=== PATIENT | female | born 1975 | race African-American/Black ===

== ENCOUNTER 2018-02-10 04:06 | Emergency (ER) | payer OTHER ==
[~2018-02-10] VITALS: Ht 162.6 cm; Wt 74.8 kg
[2018-02-10 04:08] VITALS: BP_SYST 134
[2018-02-10] MEDS ORDERED: LORazepam 1 MG TABLET PO ONE (04:15)
[2018-02-10] MEDS ORDERED: HALOPERIDOL LACTATE 5 MG/ML VIAL IM ONE (05:00)
[2018-02-10] MEDS ORDERED: traMADol HCL HCL 50 MG TABLET (ULTRAM) PO ONE (05:45)
[2018-02-10 06:50] VITALS: BP_SYST 126
== END 2018-02-10 06:50 | disposition home or self-care (01) ==
LOC: SED 04:06
DX: F41.9 Anxiety disorder, unspecified (principal); F11.20 Opioid dependence, uncomplicated; I10 Essential (primary) hypertension
CPT/HCPCS: 96372; 99283; J1630

== ENCOUNTER 2018-02-14 05:19 | Emergency (ER) | payer OTHER ==
[~2018-02-14] VITALS: Ht 162.6 cm; Wt 74.8 kg
[2018-02-14 05:20] VITALS: BP_SYST 124
[2018-02-14] MEDS ORDERED: ALPRAZolam 0.25 MG TABLET PO ONE (06:30)
[2018-02-14] MEDS ORDERED: LORazepam 2 MG/ML VIAL (FOR ER USE) IM ONE (07:15)
== END 2018-02-14 11:55 | disposition home or self-care (01) ==
LOC: SED 05:19
DX: F41.9 Anxiety disorder, unspecified (principal); I10 Essential (primary) hypertension; G89.29 Other chronic pain; M54.9 Dorsalgia, unspecified
CPT/HCPCS: 99284; J2060

== ENCOUNTER 2019-10-14 17:03 | Emergency (ER) | payer OTHER ==
[~2019-10-14] VITALS: Ht 170.2 cm; Wt 113.4 kg
[2019-10-14 17:15] VITALS: BP_SYST 140
--- NOTE | 2019-10-14 17:15 | NUR ---
Patient to ER bed 5 to gown for evaluation. Side rails up. Report given to ADY Khan.
--- NOTE | 2019-10-14 17:30 | NUR ---
MD BOWLES AT BEDSIDE TO ASSESS
--- NOTE | 2019-10-14 18:15 | NUR ---
HERE FROM HOME FOR SI WITH PLAN TO OD ON NIQUIL LIQUID 4 BOTTLES. SKIN WARM DRY, GOOD COLOR, CLEAR MENTATION AND SPEECH. COMMUNICATES CLEARLY IN FULL COMPLETE SENTENCES, DENIES PAIN/SOB. AGITATED, CONFRONTATIONAL AND ARGUMENTATIVE. SHE IS DEMANDING ATIVAN
[2019-10-14 18:23] LABS: BASOPHILS # (AUTO) 0.1 K/uL (0.0-0.2); BASOPHILS % (AUTO) 0.9 % (0.0-2.0); EOSINOPHILS # (AUTO) 0.1 K/uL (0.0-0.4); HEMOGLOBIN 11.1 g/dL (12.0-16.0); LYMPHOCYTES # (AUTO) 2.6 K/uL (1.0-5.5); MEAN CORPUSCULAR HEMOGLOBIN 21 pg (27-31); MEAN CORPUSCULAR HGB CONC 31 % (32-36); MEAN CORPUSCULAR VOLUME 68 fL (79.0-98.0); MONOCYTES # (AUTO) 0.9 K/uL (0.0-1.0); MONOCYTES % (AUTO) 6.3 % (1.7-9.3); NEUTROPHILS # (AUTO) 10.7 K/uL (1.8-7.7); NEUTROPHILS % (AUTO) 73.8 % (40.0-70.0); PLATELET COUNT (AUTO) 349 K/uL (130-430); RED BLOOD CELL COUNT(AUTO) 5.29 MIL/uL (4.2-6.2); RED CELL DISTRIBUTION WIDTH 16.4 % (9.0-15.0); WHITE BLOOD COUNT (AUTO) 14.5 K/uL (4.8-10.8)
[2019-10-14 18:32] LABS: ANION GAP 10 (5-15); CALCIUM 8.4 mg/dL (8.4-11.0); CHLORIDE 101 mmol/L (98-107); CREATININE 1.07 mg/dL (0.55-1.30); GLUCOSE 93 mg/dL (70-99); POTASSIUM 3.7 mmol/L (3.5-5.1); SODIUM SERUM 136 mmol/L (136-145); UREA NITROGEN, BLOOD 13 mg/dL (8-21)
[2019-10-14 18:38] LABS: GFR AFRICAN AMERICAN 72 mL/min (>90)
[2019-10-14 18:39] LABS: ALANINE AMINOTRANSFERASE 40 U/L (12-78); ALBUMIN 3.5 g/dL (3.4-4.8); AMYLASE 38 U/L (0-100); ASPARTATE AMINOTRANSFERASE 21 U/L (10-37); LIPASE 63 U/L (73-393); TOTAL BILIRUBIN 0.3 mg/dL (0.0-1.0)
[2019-10-14 18:40] LABS: ACETAMINOPHEN < 1 ug/mL (1-30); ALCOHOL, BLOOD < 3 mg/dL (<10)
[2019-10-14] MEDS ORDERED: NACL 0.9% 1,000 ML IV ONE (19:05)
[2019-10-14] MEDS ORDERED: cefTRIAXone 1 GM IVPB PREMIX 50 ML IV ONE (19:15)
[2019-10-14 19:43] LABS: BILIRUBIN,URINE NEGATIVE (NEGATIVE); BLOOD, URINE NEGATIVE (NEGATIVE); CLARITY/URINE CLEAR (CLEAR); COLOR,URINE YELLOW (YELLOW); GLUCOSE,URINE NEGATIVE (NEGATIVE); KETONES,URINE NEGATIVE (NEGATIVE); LEUKOCYTE ESTERASE ,URINE 1+ (NEGATIVE); NITRITE, URINE NEGATIVE (NEGATIVE); PROTEIN URINE NEGATIVE (NEGATIVE); UROBILINOGEN,URINE 0.2 (0.2-1.0)
--- NOTE | 2019-10-14 19:45 | NUR ---
Report received from ADY Khan
[2019-10-14 19:58] LABS: BARBITURATE, URINE NEGATIVE (NEG <=200); BENZODIAZEPINE, URINE NEGATIVE (NEG <=150); CANNABINOID, URINE POSITIVE (NEG <=50); COCAINE, URINE NEGATIVE (NEG <=150); METHAMPHETAMINES SCREEN,URINE NEGATIVE (NEG <=500); OPIATE, URINE NEGATIVE (NEG <=100); PHENCYCLIDINE SCREEN,URINE NEGATIVE (NEG <=25); UR TRICYCLIC ANTIDEPRESSANTS NEGATIVE (NEG <=300); URINE AMPHETAMINE NEGATIVE (NEG <=500); URINE METHADONE NEGATIVE (NEG <=200); URINE OXYCODONE SCREEN NEGATIVE (NEG <=100); URINE PROPOXYPHENE SCREEN NEGATIVE (NEG <=300)
--- NOTE | 2019-10-14 20:01 | NUR ---
Attempted to place 20 gauge IV line to right AC. Patient is cursing and yelling while moving arm. Unsuccessful attempt. Patient is verbally abusive. Demanding Ativan. MD aware. New orders received. Will continue to monitor.
[2019-10-14 20:03] LABS: BACTERIA,URINE FEW /HPF (None Seen); RBC,URINE NONE SEEN /HPF (0-3)
[2019-10-14 20:04] LABS: MUCUS,URINE None Seen /LPF (None Seen)
--- NOTE | 2019-10-14 20:11 | NUR ---
Patient placed on suicide precautions. Metal detector wand used to further screen patient of any potential hazardous belongings. All belongings inventoried, placed in bags and removed from room. Cabinets locked. BP and pulse oximeter cords, and manager cardiac cath leads removed. Patient is medically cleared at this time. Awaiting PET Team evaluation
[2019-10-14] MEDS ORDERED: HALOPERIDOL LACTATE 5 MG/ML VIAL IM ONE (20:15)
[2019-10-14] MEDS ORDERED: LORazepam 2 MG/ML VIAL IM ONE (20:15)
--- NOTE | 2019-10-14 20:20 | NUR ---
# 20 gauge angiocath placed to LAC. Use of asceptic technique. Opsite placed over site. Blood return noted. Blood for lab drawn from site. Flushed with 10 cc of normal saline. No evidence of infiltration noted. Patient tolerated well.
[2019-10-14 20:22] LABS: CHOLESTEROL 154 mg/dL (<200); HDL CHOLESTEROL 54 mg/dL (>55); LDL CHOLESTEROL 78 mg/dL (<100); TRIGLYCERIDES 116 mg/dL (30-150)
--- NOTE | 2019-10-14 21:00 | NUR ---
Patient resting quietly. No acute distress noted.
--- NOTE | 2019-10-14 22:00 | NUR ---
Patient resting quietly. No acute distress noted.
--- NOTE | 2019-10-15 01:39 | NUR ---
Patient resting quietly. No acute distress noted. Voiced no complaints. Vital signs within normal range.
--- NOTE | 2019-10-15 04:30 | NUR ---
Patient up out of bed to use restroom. Voiced no complaints. Patient reports that she is still feeling suicidal at this time.
--- NOTE | 2019-10-15 04:37 | NUR ---
Patient reports she is still feeling suicidal. States "I would like to take 4 bottles of Nyquil and go to sleep and never wake up."
--- NOTE | 2019-10-15 05:05 | NUR ---
Insurance Processing Clerk, Chris, Spoke to PET TEAM will call at [phone] for further questioning. Will endorse to AM Shift Nurse.
--- NOTE | 2019-10-15 05:35 | NUR ---
Belongings labeled and sent to Security with [facility].
--- NOTE | 2019-10-15 06:17 | NUR ---
called Dietary for safety Tray for patient
--- NOTE | 2019-10-15 07:05 | NUR ---
Patient out of bed to restroom. Steady gait observed.
--- NOTE | 2019-10-15 07:49 | NUR ---
PATIENT SEDATE AND COOPERATIVE, STATES MILD NAUSEA BUT DENIES SUICIDAL IDEATION; FULL HEAD TO TOE ASSESSMENT WITH NO OTHER REMARKABLE S/S; PET TEAM EVALUATION PENDING
--- NOTE | 2019-10-15 07:56 | NUR ---
REGULAR DIET BREAKFAST
--- NOTE | 2019-10-15 11:02 | NUR ---
REASSESSMENT; PATIENT REMAINS SEDATE AND UNCHANGED; IV OUT AND DRESSED (MEDICALLY CLEARED); REGULAR DIET LUNCH ORDERED; PET TEAM EVALUATION PENDING
--- NOTE | 2019-10-15 11:30 | NUR ---
DR HYDE PHONED FOR PATIENT REPORT; STATES WILL RETURN CALL SHORTLY AND SPEAK TO PATIENT DIRECTLY VIA CELL PHONE
--- NOTE | 2019-10-15 11:45 | NUR ---
ARRANGEMENTS TO ADMIT PATIENT TO [facility] PER DR HYDE
--- NOTE | 2019-10-15 11:45 | NUR ---
DR HYDE IN TELEPHONE INTERVIEW WITH PATIENT
--- NOTE | 2019-10-15 11:58 | NUR ---
PREPARATIONS TO TRANSPORT PATIENT TO [facility]; VOLUNTARY STATUS
--- NOTE | 2019-10-15 12:39 | NUR ---
REPORT CALLED TO [facility]; EMS CALLED FOR TRANSPORT
[2019-10-15] MEDS ORDERED: CITA10TA9 PO (12:50)
[2019-10-15] MEDS ORDERED: AMLO5TAB92 PO (12:50)
[2019-10-15] MEDS ORDERED: GABA1TAB PO (12:50)
[2019-10-15] MEDS ORDERED: PNV91TAB3 PO (12:51)
[2019-10-15 13:36] VITALS: BP_SYST 134
--- NOTE | 2019-10-15 13:40 | NUR ---
[facility] HERE TO TAKE PATIENT TO [facility] UNDER CARE OF DR HYDE; HAND OFF REPORT AND PATIENT TRANSPORTED BCLS; UNCHANGED
== END 2019-10-15 13:36 ==
LOC: SED 17:03
DX: F32.9 Major depressive disorder, single episode, unspecified (principal); R45.851 Suicidal ideations; D72.829 Elevated white blood cell count, unspecified; I10 Essential (primary) hypertension; F41.9 Anxiety disorder, unspecified
CPT/HCPCS: 36415; 71045; 80053; 80061; 80307; 81000; 82150; 83036; 83605; 83690; 85025; 85610; 85730; 87040; 87086; 93005; 96365; 96372; 99285; G0480; G0481; G0482; J0696; J1630; J2060; J7040

== ENCOUNTER 2020-01-19 12:53 | Emergency (ER) | payer BC, OTHER ==
[~2020-01-19] VITALS: Ht 162.6 cm; Wt 94.8 kg
[~2020-01-19 12:53] MED LIST: AMLO5TAB92 PO; CITA10TA9 PO; GABA1TAB PO; PNV91TAB3 PO
[2020-01-19 16:06] LABS: BASOPHILS # (AUTO) 0.1 K/uL (0.0-0.2); BASOPHILS % (AUTO) 0.5 % (0.0-2.0); EOSINOPHILS # (AUTO) 0.2 K/uL (0.0-0.4); EOSINOPHILS % (AUTO) 1.4 % (0.0-4.0); HEMATOCRIT 38.8 % (36-48); HEMOGLOBIN 11.8 g/dL (12.0-16.0); LYMPHOCYTES # (AUTO) 2.3 K/uL (1.0-5.5); MEAN CORPUSCULAR HEMOGLOBIN 20 pg (27-31); MEAN CORPUSCULAR HGB CONC 30 % (32-36); MEAN CORPUSCULAR VOLUME 65 fL (79.0-98.0); MONOCYTES # (AUTO) 0.8 K/uL (0.0-1.0); MONOCYTES % (AUTO) 6.5 % (1.7-9.3); NEUTROPHILS # (AUTO) 9.3 K/uL (1.8-7.7); NEUTROPHILS % (AUTO) 73.6 % (40.0-70.0); PLATELET COUNT (AUTO) 270 K/uL (130-430); RED BLOOD CELL COUNT(AUTO) 5.94 MIL/uL (4.2-6.2); RED CELL DISTRIBUTION WIDTH 17.6 % (9.0-15.0); WHITE BLOOD COUNT (AUTO) 12.7 K/uL (4.8-10.8)
[2020-01-19 16:16] LABS: ANION GAP 10 (5-15); CALCIUM 9.9 mg/dL (8.4-11.0); CHLORIDE 101 mmol/L (98-107); CREATININE 0.89 mg/dL (0.55-1.30); GLUCOSE 98 mg/dL (70-99); POTASSIUM 3.5 mmol/L (3.5-5.1); SODIUM SERUM 137 mmol/L (136-145); UREA NITROGEN, BLOOD 8 mg/dL (8-21)
[2020-01-19 16:17] LABS: GFR AFRICAN AMERICAN 89 mL/min (>90)
[2020-01-19 16:21] LABS: ALANINE AMINOTRANSFERASE 42 U/L (12-78); ALBUMIN 3.6 g/dL (3.4-4.8); ASPARTATE AMINOTRANSFERASE 29 U/L (10-37); TOTAL BILIRUBIN 0.3 mg/dL (0.0-1.0)
[2020-01-19 16:22] LABS: ALCOHOL, BLOOD < 3 mg/dL (<10)
[2020-01-19 16:23] LABS: ACETAMINOPHEN < 1 ug/mL (1-30)
[2020-01-19 18:18] LABS: BARBITURATE, URINE NEGATIVE (NEG <=200); BENZODIAZEPINE, URINE NEGATIVE (NEG <=150); CANNABINOID, URINE NEGATIVE (NEG <=50); COCAINE, URINE NEGATIVE (NEG <=150); METHAMPHETAMINES SCREEN,URINE NEGATIVE (NEG <=500); OPIATE, URINE NEGATIVE (NEG <=100); PHENCYCLIDINE SCREEN,URINE NEGATIVE (NEG <=25); UR TRICYCLIC ANTIDEPRESSANTS NEGATIVE (NEG <=300); URINE AMPHETAMINE NEGATIVE (NEG <=500); URINE METHADONE NEGATIVE (NEG <=200); URINE OXYCODONE SCREEN NEGATIVE (NEG <=100); URINE PROPOXYPHENE SCREEN NEGATIVE (NEG <=300)
[2020-01-19] MEDS ORDERED: KETOROLAC TROMETHAMINE 30 MG VIAL IM ONE (23:15)
[2020-01-19] MEDS ORDERED: LORazepam 2 MG/ML VIAL IM ONE (23:15)
[2020-01-20 08:30] VITALS: BP_SYST 131
== END 2020-01-20 08:30 ==
LOC: SED 12:53
DX: R45.851 Suicidal ideations (principal); F41.9 Anxiety disorder, unspecified; I10 Essential (primary) hypertension; F11.20 Opioid dependence, uncomplicated; Z79.899 Other long term (current) drug therapy
CPT/HCPCS: 36415; 80053; 80307; 81002; 81025; 84703; 85025; 96372; 99285; G0480; G0481; G0482; J1885; J2060

== ENCOUNTER 2020-02-12 12:19 | Emergency (ER) | payer BC ==
[~2020-02-12] VITALS: Ht 162.6 cm; Wt 97.1 kg
[2020-02-12 12:37] VITALS: BP_SYST 147
[2020-02-12 13:48] LABS: BASOPHILS # (AUTO) 0.1 K/uL (0.0-0.2); BASOPHILS % (AUTO) 1.1 % (0.0-2.0); EOSINOPHILS # (AUTO) 0.2 K/uL (0.0-0.4); EOSINOPHILS % (AUTO) 2.2 % (0.0-4.0); HEMATOCRIT 36.6 % (36-48); HEMOGLOBIN 11.2 g/dL (12.0-16.0); LYMPHOCYTES # (AUTO) 2.2 K/uL (1.0-5.5); LYMPHOCYTES % (AUTO) 24.3 % (20.5-51.5); MEAN CORPUSCULAR HEMOGLOBIN 20 pg (27-31); MEAN CORPUSCULAR HGB CONC 31 % (32-36); MEAN CORPUSCULAR VOLUME 66 fL (79.0-98.0); MONOCYTES # (AUTO) 0.9 K/uL (0.0-1.0); NEUTROPHILS # (AUTO) 5.6 K/uL (1.8-7.7); NEUTROPHILS % (AUTO) 62.4 % (40.0-70.0); PLATELET COUNT (AUTO) 238 K/uL (130-430); RED BLOOD CELL COUNT(AUTO) 5.57 MIL/uL (4.2-6.2); RED CELL DISTRIBUTION WIDTH 18.3 % (9.0-15.0); WHITE BLOOD COUNT (AUTO) 8.9 K/uL (4.8-10.8)
[2020-02-12 14:05] LABS: ANION GAP 10 (5-15); CALCIUM 9.3 mg/dL (8.4-11.0); CHLORIDE 104 mmol/L (98-107); CREATININE 0.69 mg/dL (0.55-1.30); GFR AFRICAN AMERICAN 119 mL/min (>90); GLUCOSE 108 mg/dL (70-99); POTASSIUM 3.6 mmol/L (3.5-5.1); SODIUM SERUM 141 mmol/L (136-145); TOTAL BILIRUBIN 0.1 mg/dL (0.0-1.0); UREA NITROGEN, BLOOD 10 mg/dL (8-21)
[2020-02-12 14:06] LABS: ACETAMINOPHEN < 1 ug/mL (1-30); ALANINE AMINOTRANSFERASE 178 U/L (12-78); ALCOHOL, BLOOD < 3 mg/dL (<10); ASPARTATE AMINOTRANSFERASE 89 U/L (10-37)
[2020-02-12 14:31] LABS: BARBITURATE, URINE NEGATIVE (NEG <=200)
[2020-02-12 14:32] LABS: METHAMPHETAMINES SCREEN,URINE POSITIVE (NEG <=500); URINE AMPHETAMINE NEGATIVE (NEG <=500)
[2020-02-12 14:33] LABS: BENZODIAZEPINE, URINE NEGATIVE (NEG <=150); CANNABINOID, URINE POSITIVE (NEG <=50); COCAINE, URINE NEGATIVE (NEG <=150); OPIATE, URINE NEGATIVE (NEG <=100); PHENCYCLIDINE SCREEN,URINE NEGATIVE (NEG <=25); UR TRICYCLIC ANTIDEPRESSANTS NEGATIVE (NEG <=300); URINE METHADONE NEGATIVE (NEG <=200); URINE OXYCODONE SCREEN NEGATIVE (NEG <=100); URINE PROPOXYPHENE SCREEN NEGATIVE (NEG <=300)
[2020-02-12 14:55] LABS: BILIRUBIN,URINE NEGATIVE (NEGATIVE); BLOOD, URINE NEGATIVE (NEGATIVE); CLARITY/URINE SL CLOUDY (CLEAR); COLOR,URINE YELLOW (YELLOW); GLUCOSE,URINE NEGATIVE (NEGATIVE); KETONES,URINE NEGATIVE (NEGATIVE); LEUKOCYTE ESTERASE ,URINE NEGATIVE (NEGATIVE); NITRITE, URINE NEGATIVE (NEGATIVE); PROTEIN URINE TRACE (NEGATIVE)
[2020-02-12] MEDS ORDERED: LORazepam 1 MG TABLET PO ONE (17:15)
[2020-02-12] MEDS ORDERED: GABAPENTIN 300 MG CAPSULE PO ONE (17:15)
[2020-02-12] MEDS ORDERED: KETOROLAC TROMETHAMINE 30 MG VIAL IVP ONE (17:15)
[2020-02-12] MEDS ORDERED: LORazepam 2 MG/ML VIAL IVP ONE (17:15)
[2020-02-12 22:38] VITALS: BP_SYST 116
== END 2020-02-12 22:38 ==
LOC: SED 12:19
DX: F32.9 Major depressive disorder, single episode, unspecified (principal); R45.851 Suicidal ideations; F41.9 Anxiety disorder, unspecified; F19.10 Other psychoactive substance abuse, uncomplicated; I10 Essential (primary) hypertension; F17.210 Nicotine dependence, cigarettes, uncomplicated
CPT/HCPCS: 36415; 80053; 80307; 81003; 85025; 96372; 99285; G0480; G0481; G0482; J1885; J2060